=== PATIENT | male | born 1950 | race Hispanic/Latino ===

== ENCOUNTER 2021-08-17 10:00 | Emergency (ER) | payer SELFPAY ==
[2021-08-17] MEDS ORDERED: Ibuprofen 200 MG TAB ONE (11:17)
[2021-08-17] MEDS ORDERED: Lidocaine 1% PF 5 ML VIAL ONE (11:37)
[2021-08-17 15:28] LABS: BF Color Red; BF RBC Count - Manual 64800 /cu.mm; BF WBC/Nonhematics Ct.-Manual 4880 /cu.mm; Body Fluid Source Synovial Fluid; Clarity Cloudy/Turbid (Clear); Tube # EDTA
[2021-08-17 15:43] LABS: BF Segmented Neutrophils 66 %; Cell Count Non Hematic 19 %; Eosinophils 1 %; Lymphocytes 10 %
== END 2021-08-17 16:38 | disposition home or self-care (01) ==
LOC: ERS 10:00
DX: M70.52 Other bursitis of knee, left knee (principal); R03.0 Elevated blood-pressure reading, without diagnosis of hypertension; F17.210 Nicotine dependence, cigarettes, uncomplicated
CPT/HCPCS: 20610; 82945; 85060; 87070; 87077; 87186; 87205; 89051; 89060

== ENCOUNTER 2021-08-18 11:17 | Emergency (ER) | payer MEDICARE, SELFPAY ==
[2021-08-18 12:22] LABS: #Eosinphils 0.1 thou/uL (0.0-0.7); #Lymphocytes 2.3 thou/uL (1.20-3.40); #Monocytes 1.1 thou/uL (0.11-0.59); #Neutrophils 9.8 thou/uL (1.40-6.50); %Basophils 0.2 % (0.0-1.0); %Eosinophils 0.8 % (0.0-10.0); %Lymphocytes 17.1 % (21.0-51.0); %Monocytes 8.2 % (0.0-10.0); %Neutrophils 73.8 % (42.0-75.0); Hemoglobin 14.4 g/dL (14.0-18.0); Mean Corpuscular HGB CONC 32.1 g/dL (32.0-36.0); Mean Corpuscular Hemoglobin 31.2 pg (27.0-31.0); Mean Corpuscular Volume 97.1 fL (78.0-98.0); Mean Platelet Volume 8.4 fL (7.4-10.4); Platelet Count 218 thou/uL (130-400); Red Blood Cell (RBC) Count 4.62 mill/uL (4.70-6.10); White Blood Cell (WBC) Count 13.3 thou/uL (4.8-10.8)
[2021-08-18 12:41] LABS: ALT (SGPT) 11 U/L (8-55); AST (SGOT) 14 U/L (5-34); Albumin 3.7 g/dL (3.4-4.8); Alkaline Phosphatase 89 U/L (40-110); Anion Gap 10 mmol/L (10-20); BUN (Urea Nitrogen) 15 mg/dL (8.4-25.7); Bilirubin, Total 0.9 mg/dL (0.2-1.2); CRP (Inflammatory) 7.36 mg/dL (= or < 0.5); Calc. Creatinine Clearance 0 mL/min (70-130); Calcium 9.2 mg/dL (7.8-10.44); Carbon Dioxide 27 mmol/L (23-31); Chloride 106 mmol/L (98-107); Globulin 3.1 g/dL (2.4-3.5); Glucose 85 mg/dL (80-115); Potassium 3.7 mmol/L (3.5-5.1); Protein, Total 6.8 g/dL (5.8-8.1); Sodium 139 mmol/L (136-145)
== END 2021-08-18 15:11 | disposition home or self-care (01) ==
LOC: ERS 11:17
DX: M25.562 Pain in left knee (principal); L53.9 Erythematous condition, unspecified; F17.210 Nicotine dependence, cigarettes, uncomplicated; Z79.899 Other long term (current) drug therapy
CPT/HCPCS: 36415; 80053; 85025; 85652; 86140; 99283

== ENCOUNTER 2021-11-29 14:06 | Emergency (ER) | payer MEDICARE ==
[2021-11-29] MEDS ORDERED: HYDROcodone/Acetaminophen 10/325 mg Tablet ONE (14:31)
== END 2021-11-29 14:35 | disposition home or self-care (01) ==
LOC: ERS 14:06
DX: K04.7 Periapical abscess without sinus (principal); F17.210 Nicotine dependence, cigarettes, uncomplicated
CPT/HCPCS: 99283

== ENCOUNTER 2023-10-05 10:22 | Inpatient (IN) | payer MEDICARE, OTHER ==
[2023-10-05] MEDS ORDERED: niCARdipine 25 MG/10 ML SDV ONE (10:34)
[2023-10-05] MEDS ORDERED: Sodium Chloride 0.9% 250 ML 250 ML ONE (10:34)
[2023-10-05 11:00] LABS: #Basophils 0.1 thou/uL (0.0-0.2); #Monocytes 0.7 thou/uL (0.11-0.59); #Neutrophils 6.9 thou/uL (1.40-6.50); %Basophils 0.7 % (0.0-1.0); %Eosinophils 0.4 % (0.0-10.0); %Monocytes 7.4 % (0.0-10.0); %Neutrophils 71.1 % (42.0-75.0); Hematocrit 42.6 % (42.0-52.0); Hemoglobin 15.1 g/dL (14.0-18.0); Mean Corpuscular HGB CONC 35.4 g/dL (32.0-36.0); Mean Corpuscular Hemoglobin 32.2 pg (27.0-31.0); Mean Corpuscular Volume 90.8 fl (78.0-98.0); Mean Platelet Volume 11.2 fL (7.4-10.4); Platelet Count 250 10x3/uL (130-400); RBC Distribution Width 12.9 % (11.5-14.5); Red Blood Cell (RBC) Count 4.69 mill/uL (4.70-6.10); White Blood Cell (WBC) Count 9.7 10x3/uL (4.8-10.8)
[2023-10-05 11:15] LABS: Prothrombin Time 12.7 sec (12.0-14.7)
[2023-10-05 11:16] LABS: PTT 35.7 sec (22.9-36.1)
[2023-10-05 11:24] LABS: ALT (SGPT) 17 U/L (8-55); AST (SGOT) 22 U/L (5-34); Albumin 4.1 g/dL (3.4-4.8); Alkaline Phosphatase 88 U/L (40-110); Anion Gap 13 mmol/L (10-20); BUN (Urea Nitrogen) 17 mg/dL (8.4-25.7); Bilirubin, Total 1.5 mg/dL (0.2-1.2); Calc. Creatinine Clearance 0 mL/min (70-130); Calcium 9.2 mg/dL (7.8-10.44); Carbon Dioxide 23 mmol/L (23-31); Chloride 106 mmol/L (98-107); Estimated GFR 96; Globulin 2.9 g/dL (2.4-3.5); Glucose 92 mg/dL (83-110); Sodium 138 mmol/L (136-145)
[2023-10-05 11:27] LABS: Troponin I 0.011 ng/mL (< 0.028)
[2023-10-05] MEDS ORDERED: Ondansetron PF 4 MG/2 ML Vial IVP PRN (14:43)
[2023-10-05] MEDS ORDERED: Bisacodyl 10 MG SUPP PR PRN (14:43)
[2023-10-05] MEDS ORDERED: Acetaminophen 650 MG Suppository PR PRN (14:43)
[2023-10-05] MEDS ORDERED: niCARdipine 25 MG in Sodium Chloride 0.9% 250 ML 250 ML IVPB SCH (15:00)
[2023-10-05] MEDS: Lactated Ringer's 1,000 ML IV SCH (15:53)
[2023-10-05] MEDS: niCARdipine 25 MG in Sodium Chloride 0.9% 250 ML 250 ML IVPB SCH (15:54)
[2023-10-05] MEDS: FLU VACC QS2023(65UP)/MF59C/PF 60 MCG/0.5 ML SYRINGE IM ONE (16:22)
[2023-10-05] MEDS ORDERED: Electrolyte Replacement Protocol 1 EACH FS SCH (17:00)
[2023-10-05] MEDS ORDERED: Electrolyte Replacement Protocol FS PRN (17:00)
[2023-10-05 17:57] LABS: Acetaminophen Less than 10 mcg/mL (10.0-30.0); Alcohol Less than 10.0 mg/dL (Less than 10); Salicylate Less than 8.0 mg/dL (15.0-30.0)
[2023-10-05] MEDS: Famotidine/PF 20 mg/2ml Vial SLOW IVP SCH (20:14)
[2023-10-05] MEDS: Magnesium 2 GM/50 ML(in water) 4 GM in Premix 1 BAG IVPB SCH (20:14)
[2023-10-05] MEDS ORDERED: Atorvastatin Calcium 40 MG TAB PO SCH (21:00)
[2023-10-05 22:10] LABS: Amphetamine Not Detected (NotDetected); Barbiturates Screen Not Detected (NotDetected); Benzodiazepine Screen Not Detected (NotDetected); Cocaine Metabolite Screen Detected (NotDetected); Methadone Not Detected (NotDetected); Methamphetamine Not Detected (NotDetected); Opiate Screen Not Detected (NotDetected); Oxycodone Screen Not Detected (NotDetected); Phencyclidine (PCP) Not Detected (NotDetected); THC/Cannabinoid Screen Not Detected (NotDetected); Tricyclic Screen Not Detected (NotDetected)
[2023-10-06 05:30] LABS: #Basophils 0.1 thou/uL (0.0-0.2); #Eosinphils 0.1 thou/uL (0.0-0.7); #Monocytes 0.7 thou/uL (0.11-0.59); %Basophils 0.5 % (0.0-1.0); %Eosinophils 0.9 % (0.0-10.0); %Lymphocytes 18.1 % (21.0-51.0); %Monocytes 6.9 % (0.0-10.0); %Neutrophils 73.3 % (42.0-75.0); Hematocrit 43.2 % (42.0-52.0); Mean Corpuscular HGB CONC 34.7 g/dL (32.0-36.0); Mean Corpuscular Hemoglobin 32.1 pg (27.0-31.0); Mean Corpuscular Volume 92.5 fl (78.0-98.0); Platelet Count 261 10x3/uL (130-400); RBC Distribution Width 12.9 % (11.5-14.5); Red Blood Cell (RBC) Count 4.67 mill/uL (4.70-6.10); White Blood Cell (WBC) Count 9.6 10x3/uL (4.8-10.8)
[2023-10-06 05:44] LABS: Prothrombin Time 13.4 sec (12.0-14.7)
[2023-10-06 05:48] LABS: ALT (SGPT) 14 U/L (8-55); AST (SGOT) 18 U/L (5-34); Alkaline Phosphatase 83 U/L (40-110); Bilirubin, Direct 0.7 mg/dL (0.1-0.3); Protein, Total 6.8 g/dL (5.8-8.1)
[2023-10-06 05:49] LABS: Anion Gap 15 mmol/L (10-20); BUN (Urea Nitrogen) 13 mg/dL (8.4-25.7); Calc. Creatinine Clearance 73 mL/min (70-130); Calcium 8.8 mg/dL (7.8-10.44); Carbon Dioxide 22 mmol/L (23-31); Cardiac Risk 2.2 (Less than 4.5); Chloride 104 mmol/L (98-107); Cholesterol 141 mg/dl (< 200 Desired); Estimated GFR 99; Glucose 87 mg/dL (83-110); HDL Cholesterol 63 mg/dL (>60 Neg Risk); LDL Cholesterol, Calculated 59 mg/dL; Magnesium 2.3 mg/dL (1.6-2.6); Potassium 3.5 mmol/L (3.5-5.1); Sodium 137 mmol/L (136-145); Triglycerides 96 mg/dL (Less than 150)
[2023-10-06 06:11] LABS: Thyroid Stimulating Hormone 0.423 uIU/mL (0.35-4.94)
[2023-10-06 06:21] LABS: Hemoglobin A1c 5.3 % (4.0-6.0)
[2023-10-06] MEDS: Potassium Chloride 20 MEQ in Premix 1 BAG IVPB SCH (08:38)
[2023-10-06] MEDS ORDERED: Iopamidol 370 76% 100 ML VIAL ONE (11:15)
[2023-10-06] MEDS: Dexamethasone 4 mg/ml Vial SLOW IVP SCH ×2 (13:39→20:21)
[2023-10-06] MEDS ORDERED: niCARdipine 25 MG in Sodium Chloride 0.9% 250 ML 250 ML IVPB SCH (15:16)
[2023-10-07 06:27] LABS: #Monocytes 0.1 thou/uL (0.11-0.59); %Basophils 0.3 % (0.0-1.0); %Lymphocytes 16.9 % (21.0-51.0); %Monocytes 1.3 % (0.0-10.0); %Neutrophils 80.9 % (42.0-75.0); Hematocrit 45.4 % (42.0-52.0); Hemoglobin 15.5 g/dL (14.0-18.0); Mean Corpuscular HGB CONC 34.1 g/dL (32.0-36.0); Mean Corpuscular Hemoglobin 31.5 pg (27.0-31.0); Mean Corpuscular Volume 92.3 fl (78.0-98.0); Platelet Count 267 10x3/uL (130-400); RBC Distribution Width 12.7 % (11.5-14.5); Red Blood Cell (RBC) Count 4.92 mill/uL (4.70-6.10); White Blood Cell (WBC) Count 6.2 10x3/uL (4.8-10.8)
[2023-10-07] MEDS: Labetalol HCl 100 MG/20 ML VIAL SLOW IVP PRN (06:27)
[2023-10-07 06:46] LABS: Anion Gap 16 mmol/L (10-20); BUN (Urea Nitrogen) 22 mg/dL (8.4-25.7); Calc. Creatinine Clearance 77 mL/min (70-130); Carbon Dioxide 18 mmol/L (23-31); Chloride 107 mmol/L (98-107); Estimated GFR 100; Glucose 140 mg/dL (83-110); Potassium 4.4 mmol/L (3.5-5.1); Sodium 137 mmol/L (136-145)
[2023-10-07] MEDS: Magnesium 2 GM/50 ML(in water) 2 GM in Premix 1 BAG IVPB SCH (08:14)
[2023-10-07] MEDS: hydrALAZINE 20 MG/ML VIAL SLOW IVP PRN (09:25)
[2023-10-07] MEDS: Amlodipine 10 MG TAB PER TUBE SCH (10:30)
[2023-10-07] MEDS: Folic Acid 1 MG TAB PER TUBE SCH (10:30)
[2023-10-07] MEDS: Thiamine 100 MG TAB PER TUBE SCH (10:30)
[2023-10-07] MEDS: hydrALAZINE 10 MG TAB PER TUBE SCH (15:00)
[2023-10-08 05:45] LABS: #Monocytes 0.6 thou/uL (0.11-0.59); #Neutrophils 18.1 thou/uL (1.40-6.50); %Basophils 0.2 % (0.0-1.0); %Monocytes 3.2 % (0.0-10.0); %Neutrophils 91.9 % (42.0-75.0); Hematocrit 40.7 % (42.0-52.0); Hemoglobin 14.5 g/dL (14.0-18.0); Mean Corpuscular HGB CONC 35.6 g/dL (32.0-36.0); Mean Corpuscular Hemoglobin 32.4 pg (27.0-31.0); Mean Corpuscular Volume 91.1 fl (78.0-98.0); Platelet Count 235 10x3/uL (130-400); RBC Distribution Width 13.1 % (11.5-14.5); Red Blood Cell (RBC) Count 4.47 mill/uL (4.70-6.10); White Blood Cell (WBC) Count 19.7 10x3/uL (4.8-10.8)
[2023-10-08 06:10] LABS: Anion Gap 13 mmol/L (10-20); BUN (Urea Nitrogen) 23 mg/dL (8.4-25.7); Calc. Creatinine Clearance 78 mL/min (70-130); Calcium 8.9 mg/dL (7.8-10.44); Carbon Dioxide 21 mmol/L (23-31); Chloride 107 mmol/L (98-107); Estimated GFR 100; Glucose 154 mg/dL (83-110); Magnesium 2.4 mg/dL (1.6-2.6); Potassium 4.3 mmol/L (3.5-5.1); Sodium 137 mmol/L (136-145)
[2023-10-08] MEDS: Thiamine 100 MG TAB PER TUBE SCH (09:00)
[2023-10-08] MEDS: hydrALAZINE 25 MG TAB PER TUBE SCH (09:00)
[2023-10-08] MEDS: Amlodipine 10 MG TAB PER TUBE SCH (09:01)
[2023-10-08] MEDS: Folic Acid 1 MG TAB PER TUBE SCH (09:02)
[2023-10-08] MEDS ORDERED: E-Z-HD 98% W/W 340GM BOT (x-ray ONLY) ONE (09:58)
[2023-10-08] MEDS: hydrALAZINE 10 MG TAB PER TUBE SCH (17:37)
[2023-10-09 06:30] LABS: #Monocytes 0.6 thou/uL (0.11-0.59); #Neutrophils 15.8 thou/uL (1.40-6.50); %Basophils 0.1 % (0.0-1.0); %Lymphocytes 4.2 % (21.0-51.0); %Monocytes 3.4 % (0.0-10.0); %Neutrophils 91.2 % (42.0-75.0); Hematocrit 43.1 % (42.0-52.0); Hemoglobin 14.4 g/dL (14.0-18.0); Mean Corpuscular HGB CONC 33.4 g/dL (32.0-36.0); Mean Corpuscular Hemoglobin 31.6 pg (27.0-31.0); Mean Corpuscular Volume 94.7 fl (78.0-98.0); Mean Platelet Volume 11.4 fL (7.4-10.4); Platelet Count 226 10x3/uL (130-400); RBC Distribution Width 13.4 % (11.5-14.5); Red Blood Cell (RBC) Count 4.55 mill/uL (4.70-6.10); White Blood Cell (WBC) Count 17.3 10x3/uL (4.8-10.8)
[2023-10-09 06:51] LABS: Anion Gap 11 mmol/L (10-20); BUN (Urea Nitrogen) 19 mg/dL (8.4-25.7); Calc. Creatinine Clearance 74 mL/min (70-130); Carbon Dioxide 26 mmol/L (23-31); Chloride 106 mmol/L (98-107); Estimated GFR 99; Glucose 130 mg/dL (83-110); Magnesium 2.1 mg/dL (1.6-2.6); Potassium 4.8 mmol/L (3.5-5.1); Sodium 138 mmol/L (136-145)
[2023-10-09] MEDS: hydrALAZINE 25 MG TAB PER TUBE SCH (15:00)
[2023-10-09] MEDS: Dexamethasone 4 mg/ml Vial SLOW IVP SCH ×2 (15:00→20:42)
[2023-10-10 06:12] LABS: #Monocytes 0.7 thou/uL (0.11-0.59); #Neutrophils 10.3 thou/uL (1.40-6.50); %Basophils 0.1 % (0.0-1.0); %Lymphocytes 7.1 % (21.0-51.0); %Monocytes 5.7 % (0.0-10.0); %Neutrophils 85.7 % (42.0-75.0); Hematocrit 43.5 % (42.0-52.0); Hemoglobin 14.8 g/dL (14.0-18.0); Mean Corpuscular Hemoglobin 32.3 pg (27.0-31.0); Mean Platelet Volume 11.1 fL (7.4-10.4); Platelet Count 225 10x3/uL (130-400); RBC Distribution Width 13.2 % (11.5-14.5); Red Blood Cell (RBC) Count 4.58 mill/uL (4.70-6.10); White Blood Cell (WBC) Count 12.1 10x3/uL (4.8-10.8)
[2023-10-10 06:30] LABS: Anion Gap 10 mmol/L (10-20); BUN (Urea Nitrogen) 24 mg/dL (8.4-25.7); Calc. Creatinine Clearance 71 mL/min (70-130); Calcium 9.1 mg/dL (7.8-10.44); Carbon Dioxide 27 mmol/L (23-31); Chloride 107 mmol/L (98-107); Estimated GFR 98; Glucose 122 mg/dL (83-110); Magnesium 2.3 mg/dL (1.6-2.6); Potassium 4.5 mmol/L (3.5-5.1); Sodium 139 mmol/L (136-145)
[2023-10-10] MEDS: Dexamethasone 4 MG TAB PO SCH (08:05)
[2023-10-10] MEDS: Metoprolol Tartrate 25 MG TAB PER TUBE SCH (10:57)
[2023-10-11 06:10] LABS: #Monocytes 0.6 thou/uL (0.11-0.59); #Neutrophils 9.3 thou/uL (1.40-6.50); %Basophils 0.2 % (0.0-1.0); %Lymphocytes 8.3 % (21.0-51.0); %Monocytes 5.6 % (0.0-10.0); %Neutrophils 83.8 % (42.0-75.0); Hematocrit 46.6 % (42.0-52.0); Hemoglobin 15.8 g/dL (14.0-18.0); Mean Corpuscular HGB CONC 33.9 g/dL (32.0-36.0); Mean Corpuscular Hemoglobin 31.9 pg (27.0-31.0); Mean Corpuscular Volume 94.1 fl (78.0-98.0); Mean Platelet Volume 11.2 fL (7.4-10.4); Platelet Count 232 10x3/uL (130-400); RBC Distribution Width 13.2 % (11.5-14.5); Red Blood Cell (RBC) Count 4.95 mill/uL (4.70-6.10); White Blood Cell (WBC) Count 11.1 10x3/uL (4.8-10.8)
[2023-10-11 06:37] LABS: Anion Gap 11 mmol/L (10-20); BUN (Urea Nitrogen) 28 mg/dL (8.4-25.7); Calc. Creatinine Clearance 77 mL/min (70-130); Calcium 9.2 mg/dL (7.8-10.44); Carbon Dioxide 24 mmol/L (23-31); Chloride 107 mmol/L (98-107); Estimated GFR 100; Glucose 114 mg/dL (83-110); Magnesium 2.1 mg/dL (1.6-2.6); Sodium 138 mmol/L (136-145)
[2023-10-11 08:34] VITALS: BMI 20.2
[2023-10-11] MEDS: Dexamethasone 4 MG TAB PO SCH (09:10)
[2023-10-12 04:50] LABS: Hematocrit 48.4 % (42.0-52.0); Hemoglobin 16.7 g/dL (14.0-18.0); Manual Diff?? YES; Mean Corpuscular HGB CONC 34.5 g/dL (32.0-36.0); Mean Corpuscular Volume 92.7 fl (78.0-98.0); Mean Platelet Volume 11.1 fL (7.4-10.4); Platelet Count 218 10x3/uL (130-400); RBC Distribution Width 12.9 % (11.5-14.5); Red Blood Cell (RBC) Count 5.22 mill/uL (4.70-6.10); White Blood Cell (WBC) Count 10.1 10x3/uL (4.8-10.8)
[2023-10-12 04:51] LABS: Delete Auto Diff?? YES
[2023-10-12 05:10] LABS: Anion Gap 12 mmol/L (10-20); BUN (Urea Nitrogen) 35 mg/dL (8.4-25.7); Calc. Creatinine Clearance 74 mL/min (70-130); Carbon Dioxide 25 mmol/L (23-31); Chloride 107 mmol/L (98-107); Estimated GFR 99; Glucose 99 mg/dL (83-110); Potassium 3.9 mmol/L (3.5-5.1); Sodium 140 mmol/L (136-145)
[2023-10-12 05:37] LABS: CellaVision Operator ID LAB.CLH1; Eosinophils 1 % (0-10); Hypochromia SLIGHT = 6-15 cells HPF (0-5); Lymphocytes 16 % (21-51); Monocytes 11 % (0-10); Neutrophil 63 % (42-75); Platelet Adequacy Comment Platelets Normal; Reactive Lymphocytes 9 % (0-10); Total Cell Count 101
[2023-10-12] MEDS: Losartan 25 MG TAB PER TUBE SCH (10:39)
[2023-10-12] MEDS: Magnesium 2 GM/50 ML(in water) 2 GM in Premix 1 BAG IVPB SCH (11:08)
[2023-10-14] MEDS ORDERED: Acetaminophen 325 MG TAB PO PRN (09:54)
[2023-10-14] MEDS: hydrALAZINE 25 MG TAB PO SCH ×2 (10:33→16:02)
[2023-10-14] MEDS: Amlodipine 10 MG TAB PO SCH (10:35)
[2023-10-14] MEDS: Losartan 25 MG TAB PO SCH (10:35)
[2023-10-14] MEDS: Thiamine 100 MG TAB PO SCH (10:36)
[2023-10-14] MEDS: Folic Acid 1 MG TAB PO SCH (10:36)
[2023-10-14] MEDS: Metoprolol Tartrate 25 MG TAB PO SCH ×2 (10:36→21:35)
[2023-10-15] MEDS: Amlodipine 10 MG TAB PO SCH (08:58)
[2023-10-15] MEDS: Folic Acid 1 MG TAB PO SCH (08:59)
[2023-10-15] MEDS: Losartan 25 MG TAB PO SCH (08:59)
[2023-10-15] MEDS: Thiamine 100 MG TAB PO SCH (09:00)
[2023-10-15 12:30] VITALS: TEMP 97.6
[2023-10-15 16:33] VITALS: BP 118/72
== END 2023-10-15 15:50 | DRG 64 ==
LOC: SUATTDRO 10:22 → ERS 10:22 → CCU 14:34 → 2SE 10-07 18:53
PROVIDERS: ADMIT Family Medicine; ATTEND Internal Medicine
DX: I62.9 Nontraumatic intracranial hemorrhage, unspecified (principal); G93.41 Metabolic encephalopathy; I16.1 Hypertensive emergency; I10 Essential (primary) hypertension; R94.31 Abnormal electrocardiogram [ECG] [EKG]; F10.10 Alcohol abuse, uncomplicated; Z51.5 Encounter for palliative care; Z79.899 Other long term (current) drug therapy
CPT/HCPCS: 36415; 36416; 70450; 70496; 71045; 74230; 80048; 80061; 80076; 80143; 80179; 80306; 80307; 82607; 83036; 83735; 84145; 84443; 85025; 85610; 86850; 86900; 86901; 93005; 93010; 93306; 94760; 96365; 96366; J0360; J1100; J3475; J3480; J7050; J7120; J8540; Q9967; S0028

== ENCOUNTER 2024-02-10 08:38 | Outpatient (CLI) | payer OTHER | END 2024-02-10 08:39 | disposition home or self-care (01) | LOC: BICULT 08:38 | PROVIDERS: ATTEND Family Medicine | DX: Z13.6 Encounter for screening for cardiovascular disorders (principal); Z87.891 Personal history of nicotine dependence | CPT/HCPCS: 76775 ==

== ENCOUNTER 2024-04-12 14:52 | Outpatient (CLI) | payer OTHER | END 2024-04-12 14:53 | disposition home or self-care (01) | LOC: BICCT 14:52 | PROVIDERS: ATTEND Family Medicine | DX: Z12.2 Encounter for screening for malignant neoplasm of respiratory organs (principal); Z87.891 Personal history of nicotine dependence | CPT/HCPCS: 71271 ==